=== PATIENT | female | born 1970 | race Caucasian/White ===

== ENCOUNTER 2018-02-05 13:37 | Emergency (ER) | payer OTHER ==
[~2018-02-05] VITALS: Ht 165.1 cm; Wt 99.8 kg
[~2018-02-05 13:37] MED LIST: ACET500; ALBU90OI INH; ALBU90OI6 INH; ALBU90OI61 INH; AMOX500 PO; BCP'S; BENTYL10 MG; BENTYL10 MG PO; CHOL10002; COLE1; CYCL10 PO; ESCI20; ESOM20; FAMO20 PO; FLUT220OIA INH; HYDACE10B; HYDACE5 PO; HYDMOR2 PO; HYDR1TAB94 PO; IBUP200; INDO50; INDO50 PO; METCAR500 PO; METF500; METF500 PO; METO10; MONT10T; NAPR500 PO; NYQUIL PO; Naprosyn500 MG PO; Norco 5-325 Ta1 EACH PO; OLME20; OXYCODONE 5 MG; PANT20 PO; PANT40 PO; Prednisone10 M1 PO; Prednisone20 MG PO; RANI150; RXHYDMOR2 PO; Robaxin500 MG PO; SERT100 PO; SUMA25; SUMA25 PO; TOPI100 PO; Treximet 85-501 EACH; ZOLM5
[2018-02-05] MEDS ORDERED: BENZ100A PO (14:21)
[2018-02-05] MEDS ORDERED: AZIT250 PO (14:21)
[2018-02-05] MEDS ORDERED: (None)20 M1 PO (14:21)
[2018-05-03] MEDS ORDERED: Flagyl500 MG PO (17:43)
[2018-05-03] MEDS ORDERED: Augmentin 875-1 EACH PO (17:43)
[2018-06-19] MEDS ORDERED: HYDR1TAB94 PO (00:25)
[2018-07-26] MEDS ORDERED: CLON.1 PO (13:56)
[2018-07-26] MEDS ORDERED: OLAN2.5 PO (13:57)
[2018-07-26] MEDS ORDERED: Zofran4 MG PO (15:37)
[2018-09-07] MEDS ORDERED: ESTR2 PO (20:39)
[2018-09-07] MEDS ORDERED: Norco 5-325 Ta1 EACH PO (22:25)
[2018-09-07] MEDS ORDERED: Zantac150 MG PO (22:25)
[2018-09-07] MEDS ORDERED: Carafate1 GM/10 ML PO (22:25)
[2018-10-14] MEDS ORDERED: CIME400 (05:07)
[2018-10-14] MEDS ORDERED: NORT25 (05:07)
[2018-10-14] MEDS ORDERED: ABAT250V (05:07)
[2018-10-14] MEDS ORDERED: MONT10T PO (05:08)
[2018-10-15] MEDS ORDERED: METO10 PO (20:28)
[2018-10-15] MEDS ORDERED: Esgic Tablet1 EACH PO (20:28)
== END 2018-02-05 14:33 | disposition home or self-care (01) ==
LOC: ER 13:37
DX: J45.901 Unspecified asthma with (acute) exacerbation (principal); F31.9 Bipolar disorder, unspecified; E11.9 Type 2 diabetes mellitus without complications; M10.9 Gout, unspecified; G43.909 Migraine, unspecified, not intractable, without status migrainosus; Z88.1 Allergy status to other antibiotic agents; Z88.5 Allergy status to narcotic agent; Z88.8 Allergy status to other drugs, medicaments and biological substances; Z79.84 Long term (current) use of oral hypoglycemic drugs; Z79.899 Other long term (current) drug therapy; Z98.890 Other specified postprocedural states; Z90.710 Acquired absence of both cervix and uterus
CPT/HCPCS: 71046; 94640; 99284

== ENCOUNTER → 2018-04-18 | Outpatient (CLI) | payer OTHER ==
[~2018-04-18] MED LIST changes: +(None)20 M1 PO; +AZIT250 PO; +BENZ100A PO
[2018-04-18 16:58] LABS: BASOPHILS ABSOLUTE AUTO 0.04 K/mm3 (0.00-0.23); BASOPHILS PERCENT AUTO 1 % (0-2); EOSINOPHILS PERCENT AUTO 1 % (0-6); Hematocrit 36.3 % (33.0-51.0); Hemoglobin 12.6 g/dL (11.5-16.0); IMMATURE GRAN ABSOLUTE AUTO 0.04 K/mm3 (0.00-0.10); IMMATURE GRAN PERCENT AUTO 1 % (0-1); LYMPHOCYTES ABSOLUTE AUTO 3.51 K/mm3 (0.84-5.20); LYMPHOCYTES PERCENT AUTO 43 % (21-46); MONOCYTES ABSOLUTE AUTO 0.43 K/mm3 (0.16-1.47); MONOCYTES PERCENT AUTO 5 % (4-13); Mean Corpuscular HGB Conc 34.7 g/dL (31.5-36.5); Mean Corpuscular Volume 89 fL (80-100); Mean Platelet Volume 9.9 fL (9.1-12.4); NEUTROPHILS ABSOLUTE AUTO 4.08 K/mm3 (1.96-9.15); NEUTROPHILS PERCENT AUTO 50 % (41-73); Platelet Count 271 K/mm3 (150-400); RDW Coefficient Variation 12.7 % (11.7-14.2); RDW Standard Deviation 41.4 fL (35.1-46.3); Red Blood Cell Count 4.06 M/mm3 (3.80-5.20)
[2018-04-18 17:10] LABS: Anion Gap 13 mmol/L (6-16); Blood Urea Nitrogen 13 mg/dL (8-24); Bun/Creatinine Ratio 15.7 (12.0-20.0); CO2, Blood 22 mmol/L (21-32); Chloride, Blood 106 mmol/L (98-108); Creatinine, Blood 0.83 mg/dL (0.40-1.00); Glomerular Filtration Rate >60 (60-); Glucose, Blood 104 mg/dL (70-99); Potassium, Blood 3.7 mmol/L (3.5-5.5); Sodium, Blood 141 mmol/L (136-145)
[2018-04-18 17:11] LABS: Troponin I <0.017 ng/mL (0.000-0.040)
== END | disposition home or self-care (01) ==
LOC: LAB EV 16:50 → LAB SHORT 16:50
PROVIDERS: General Practice
DX: R07.9 Chest pain, unspecified (principal)
CPT/HCPCS: 80048; 84484; 85025

== ENCOUNTER 2018-05-26 19:31 | Emergency (ER) | payer OTHER ==
[~2018-05-26] VITALS: Ht 165.1 cm; Wt 107.5 kg
[~2018-05-26 19:31] MED LIST changes: +Augmentin 875-1 EACH PO; +Flagyl500 MG PO
[2018-05-26 20:25] LABS: BASOPHILS ABSOLUTE AUTO 0.03 K/mm3 (0.00-0.23); BASOPHILS PERCENT AUTO 0 % (0-2); EOSINOPHILS PERCENT AUTO 1 % (0-6); Hematocrit 37.5 % (33.0-51.0); Hemoglobin 12.6 g/dL (11.5-16.0); IMMATURE GRAN ABSOLUTE AUTO 0.05 K/mm3 (0.00-0.10); IMMATURE GRAN PERCENT AUTO 1 % (0-1); LYMPHOCYTES ABSOLUTE AUTO 3.22 K/mm3 (0.84-5.20); LYMPHOCYTES PERCENT AUTO 38 % (21-46); MONOCYTES ABSOLUTE AUTO 0.43 K/mm3 (0.16-1.47); MONOCYTES PERCENT AUTO 5 % (4-13); Mean Corpuscular HGB 30.7 pg (26.0-34.0); Mean Corpuscular HGB Conc 33.6 g/dL (31.5-36.5); Mean Corpuscular Volume 91 fL (80-100); Mean Platelet Volume 9.8 fL (9.1-12.4); NEUTROPHILS ABSOLUTE AUTO 4.63 K/mm3 (1.96-9.15); NEUTROPHILS PERCENT AUTO 55 % (41-73); Platelet Count 252 K/mm3 (150-400); RDW Coefficient Variation 12.4 % (11.7-14.2); RDW Standard Deviation 41.2 fL (35.1-46.3); Red Blood Cell Count 4.11 M/mm3 (3.80-5.20); White Blood Cell Count 8.46 K/mm3 (4.00-11.30)
[2018-05-26 20:44] LABS: Alanine Aminotransfer (ALT/SGP 24 U/L (12-78); Albumin, Blood 3.4 g/dL (3.4-5.0); Albumin/Globulin Ratio 0.9 (0.8-1.8); Alk Phos 47 U/L (50-136); Anion Gap 10 mmol/L (6-16); Aspartate Aminotrans (AST/SGOT 22 U/L (12-37); Bilirubin, Total 0.2 mg/dL (0.1-1.0); Blood Urea Nitrogen 13 mg/dL (8-24); Bun/Creatinine Ratio 21.3 (12.0-20.0); CO2, Blood 22 mmol/L (21-32); Calcium, Blood 8.6 mg/dL (8.5-10.1); Chloride, Blood 109 mmol/L (98-108); Creatinine, Blood 0.61 mg/dL (0.40-1.00); Globulin, Blood 3.6 g/dL (2.2-4.0); Glomerular Filtration Rate >60 (60-); Glucose, Blood 152 mg/dL (70-99); Potassium, Blood 3.5 mmol/L (3.5-5.5); Sodium, Blood 141 mmol/L (136-145)
[2018-05-27 00:42] LABS: Source, Urine Voided
[2018-05-27 00:57] LABS: Appearance, Urine Clear (Clear); Bilirubin, Urine Neg (Neg); Blood, Urine Neg (Neg); Color, Urine Yellow (P-Yellow); Glucose Qualitative, Urine Neg (Neg); Ketones, Urine Neg (Neg); Leukocyte Esterase, Urine Neg (Neg); Nitrite, Urine Neg (Neg); Protein, Urine Neg (Neg); Urobilinogen, Urine NORM (Normal)
[2018-05-27] MEDS ORDERED: CEFP200 PO (05:13)
[2018-05-27] MEDS ORDERED: Flagyl500 MG PO (05:13)
== END 2018-05-27 05:35 | disposition home or self-care (01) ==
LOC: ER 19:31
PROVIDERS: Emergency Medicine
DX: K52.9 Noninfective gastroenteritis and colitis, unspecified (principal); R11.0 Nausea; Z88.8 Allergy status to other drugs, medicaments and biological substances; Z88.1 Allergy status to other antibiotic agents; Z88.5 Allergy status to narcotic agent; Z79.899 Other long term (current) drug therapy; Z79.84 Long term (current) use of oral hypoglycemic drugs; Z79.52 Long term (current) use of systemic steroids; F31.9 Bipolar disorder, unspecified; E11.9 Type 2 diabetes mellitus without complications; J45.909 Unspecified asthma, uncomplicated
CPT/HCPCS: 36415; 74177; 80053; 81003; 83690; 85025; 96365; 96366; 96375; 99284-25; J2405; J2543; J2550; J3010; J7030; Q9967

== ENCOUNTER → 2018-07-06 | Outpatient (CLI) | payer OTHER ==
[~2018-07-06] MED LIST changes: +CEFP200 PO
[2018-07-06 15:03] LABS: Adenovirus F 40/41 Not Detected (NOT DETECT); Astrovirus Not Detected (NOT DETECT); Campylobacter Sp Not Detected (NOT DETECT); Cryptosporidium Not Detected (NOT DETECT); Cyclospora Cayetanensis Not Detected (NOT DETECT); E. Coli O157 Not Detected (NOT DETECT); Entamoeba Histolytica Not Detected (NOT DETECT); Enteroaggregative E. coli-EAEC Not Detected (NOT DETECT); Enteropathogenic E. coli-EPEC Not Detected (NOT DETECT); Enterotoxigenic E. coli-ETEC Not Detected (NOT DETECT); Giardia Lamblia Not Detected (NOT DETECT); Norovirus GI/GII Not Detected (NOT DETECT); Plesiomonas Shigelloides Not Detected (NOT DETECT); Rotavirus A Not Detected (NOT DETECT); Salmonella Sp Not Detected (NOT DETECT); Sapovirus Not Detected (NOT DETECT); Shiga Toxin-prod E. coli-STEC Not Detected (NOT DETECT); Shigella/Enteroin E. coli-EIEC Not Detected (NOT DETECT); Vibrio Cholerae Not Detected (NOT DETECT); Vibrio Sp Not Detected (NOT DETECT); Yersinia Enterocolitica Not Detected (NOT DETECT)
== END ==
LOC: EDSTATUS 06-30 13:00 → LAB FUT 06-30 13:00 → LAB SHORT 13:34 → LAB 13:34
PROVIDERS: Student in an Organized Health Care Education/Training Program
DX: R12 Heartburn (principal); R19.7 Diarrhea, unspecified; R14.0 Abdominal distension (gaseous)
CPT/HCPCS: 87177; 87209; 87507

== ENCOUNTER 2018-07-08 19:23 | Emergency (ER) | payer OTHER ==
[~2018-07-08] VITALS: Ht 165.1 cm; Wt 104.8 kg
[2018-07-08 20:03] LABS: BASOPHILS ABSOLUTE AUTO 0.04 K/mm3 (0.00-0.23); BASOPHILS PERCENT AUTO 0 % (0-2); EOSINOPHILS ABSOLUTE AUTO 0.12 K/mm3 (0.00-0.68); EOSINOPHILS PERCENT AUTO 1 % (0-6); Hematocrit 37.3 % (33.0-51.0); Hemoglobin 12.6 g/dL (11.5-16.0); IMMATURE GRAN ABSOLUTE AUTO 0.06 K/mm3 (0.00-0.10); IMMATURE GRAN PERCENT AUTO 1 % (0-1); LYMPHOCYTES ABSOLUTE AUTO 3.47 K/mm3 (0.84-5.20); LYMPHOCYTES PERCENT AUTO 36 % (21-46); MONOCYTES ABSOLUTE AUTO 0.64 K/mm3 (0.16-1.47); MONOCYTES PERCENT AUTO 7 % (4-13); Mean Corpuscular HGB 30.7 pg (26.0-34.0); Mean Corpuscular HGB Conc 33.8 g/dL (31.5-36.5); Mean Corpuscular Volume 91 fL (80-100); Mean Platelet Volume 9.9 fL (9.1-12.4); NEUTROPHILS ABSOLUTE AUTO 5.24 K/mm3 (1.96-9.15); NEUTROPHILS PERCENT AUTO 55 % (41-73); Platelet Count 236 K/mm3 (150-400); RDW Coefficient Variation 12.7 % (11.7-14.2); RDW Standard Deviation 41.6 fL (35.1-46.3); White Blood Cell Count 9.57 K/mm3 (4.00-11.30)
[2018-07-08 20:27] LABS: Alanine Aminotransfer (ALT/SGP 28 U/L (12-78); Albumin, Blood 3.4 g/dL (3.4-5.0); Albumin/Globulin Ratio 0.9 (0.8-1.8); Alk Phos 45 U/L (50-136); Anion Gap 10 mmol/L (6-16); Aspartate Aminotrans (AST/SGOT 15 U/L (12-37); Bilirubin, Total <0.1 mg/dL (0.1-1.0); Blood Urea Nitrogen 13 mg/dL (8-24); Bun/Creatinine Ratio 19.1 (12.0-20.0); CO2, Blood 23 mmol/L (21-32); Chloride, Blood 106 mmol/L (98-108); Creatinine, Blood 0.68 mg/dL (0.40-1.00); Globulin, Blood 3.6 g/dL (2.2-4.0); Glomerular Filtration Rate >60 (60-); Glucose, Blood 126 mg/dL (70-99); Sodium, Blood 139 mmol/L (136-145)
[2018-07-08 21:37] LABS: Source, Urine Clean Catch
[2018-07-08 21:38] LABS: Bilirubin, Urine Neg (Neg); Blood, Urine Neg (Neg); Glucose Qualitative, Urine Neg (Neg); Ketones, Urine 1+ (Neg); Leukocyte Esterase, Urine Neg (Neg); Nitrite, Urine Neg (Neg); Protein, Urine Neg (Neg); Urobilinogen, Urine NORM (Normal)
[2018-07-08 21:50] LABS: Appearance, Urine Clear (Clear); Color, Urine Yellow (P-Yellow)
== END 2018-07-09 00:55 | disposition home or self-care (01) ==
LOC: ER 19:23
PROVIDERS: Emergency Medicine
DX: R10.10 Upper abdominal pain, unspecified (principal); Z88.1 Allergy status to other antibiotic agents; Z88.8 Allergy status to other drugs, medicaments and biological substances; Z88.5 Allergy status to narcotic agent; Z79.899 Other long term (current) drug therapy; Z79.84 Long term (current) use of oral hypoglycemic drugs; Z79.52 Long term (current) use of systemic steroids; F31.9 Bipolar disorder, unspecified; E11.9 Type 2 diabetes mellitus without complications; J44.9 Chronic obstructive pulmonary disease, unspecified; G43.909 Migraine, unspecified, not intractable, without status migrainosus
CPT/HCPCS: 36415; 74022; 80053; 81003; 83690; 85025; 93005; 93010; 96374; 99284-25; C9113

== ENCOUNTER 2018-07-13 12:50 | Day surgery (SDC) | payer OTHER ==
[~2018-07-13] VITALS: Ht 165.1 cm; Wt 109.3 kg
[2018-07-26] MEDS ORDERED: CLON.1 PO (13:56)
[2018-07-26] MEDS ORDERED: OLAN2.5 PO (13:57)
[2018-07-26] MEDS ORDERED: Zofran4 MG PO (15:37)
== END 2018-07-13 16:54 | disposition home or self-care (01) ==
LOC: ORSCSDS 12:50
PROVIDERS: Student in an Organized Health Care Education/Training Program
PROC: 0DB58ZX Excision of Esophagus, Via Natural or Artificial Opening Endoscopic, Diagnostic (ICD-10-PCS; principal; 2018-07-13 14:00)
PROC: 0DB98ZX Excision of Duodenum, Via Natural or Artificial Opening Endoscopic, Diagnostic (ICD-10-PCS; principal; 2018-07-13 14:00)
PROC: 0DB68ZX Excision of Stomach, Via Natural or Artificial Opening Endoscopic, Diagnostic (ICD-10-PCS; principal; 2018-07-13 14:00)
DX: K21.9 Gastro-esophageal reflux disease without esophagitis (principal); K31.7 Polyp of stomach and duodenum; E11.9 Type 2 diabetes mellitus without complications; K58.0 Irritable bowel syndrome with diarrhea; F41.8 Other specified anxiety disorders; G47.30 Sleep apnea, unspecified; F31.9 Bipolar disorder, unspecified; J45.909 Unspecified asthma, uncomplicated; Z68.39 Body mass index [BMI] 39.0-39.9, adult; E66.01 Morbid (severe) obesity due to excess calories; Z79.84 Long term (current) use of oral hypoglycemic drugs; Z79.899 Other long term (current) drug therapy
CPT/HCPCS: 82947; 88305; 88341; 88342; J2250; J2405; J3010

== ENCOUNTER 2018-12-07 17:36 | Emergency (ER) | payer OTHER ==
[~2018-12-07] VITALS: Ht 165.1 cm; Wt 116.6 kg
[~2018-12-07 17:36] MED LIST changes: +ABAT250V; +CIME400; +CLON.1 PO; +Carafate1 GM/10 ML PO; +ESTR2 PO; +Esgic Tablet1 EACH PO; +METO10 PO; +MONT10T PO; +NORT25; +OLAN2.5 PO; +Zantac150 MG PO; +Zofran4 MG PO
[2018-12-07 18:16] LABS: BASOPHILS ABSOLUTE AUTO 0.01 K/mm3 (0.00-0.23); BASOPHILS PERCENT AUTO 0 % (0-2); EOSINOPHILS ABSOLUTE AUTO 0.11 K/mm3 (0.00-0.68); EOSINOPHILS PERCENT AUTO 1 % (0-6); Hematocrit 36.6 % (33.0-51.0); Hemoglobin 12.1 g/dL (11.5-16.0); IMMATURE GRAN ABSOLUTE AUTO 0.14 K/mm3 (0.00-0.10); IMMATURE GRAN PERCENT AUTO 2 % (0-1); LYMPHOCYTES ABSOLUTE AUTO 2.38 K/mm3 (0.84-5.20); LYMPHOCYTES PERCENT AUTO 30 % (21-46); MONOCYTES ABSOLUTE AUTO 0.51 K/mm3 (0.16-1.47); MONOCYTES PERCENT AUTO 6 % (4-13); Mean Corpuscular HGB 30.7 pg (26.0-34.0); Mean Corpuscular HGB Conc 33.1 g/dL (31.5-36.5); Mean Corpuscular Volume 93 fL (80-100); Mean Platelet Volume 10.1 fL (9.1-12.4); NEUTROPHILS ABSOLUTE AUTO 4.84 K/mm3 (1.96-9.15); NEUTROPHILS PERCENT AUTO 61 % (41-73); Platelet Count 204 K/mm3 (150-400); RDW Coefficient Variation 12.8 % (11.7-14.2); RDW Standard Deviation 43.6 fL (35.1-46.3); Red Blood Cell Count 3.94 M/mm3 (3.80-5.20); White Blood Cell Count 7.99 K/mm3 (4.00-11.30)
[2018-12-07 18:35] LABS: Troponin I <0.015 ng/mL (0.000-0.040)
[2018-12-07 18:36] LABS: Alanine Aminotransfer (ALT/SGP 38 U/L (12-78); Albumin, Blood 3.1 g/dL (3.4-5.0); Albumin/Globulin Ratio 0.8 (0.8-1.8); Alk Phos 54 U/L (50-136); Anion Gap 10 mmol/L (6-16); Aspartate Aminotrans (AST/SGOT 41 U/L (12-37); Bilirubin, Total 0.2 mg/dL (0.1-1.0); Blood Urea Nitrogen 13 mg/dL (8-24); Bun/Creatinine Ratio 18.3 (12.0-20.0); CO2, Blood 26 mmol/L (21-32); Calcium, Blood 8.6 mg/dL (8.5-10.1); Chloride, Blood 100 mmol/L (98-108); Creatinine, Blood 0.71 mg/dL (0.40-1.00); Globulin, Blood 3.7 g/dL (2.2-4.0); Glomerular Filtration Rate >60 (60-); Glucose, Blood 237 mg/dL (70-99); Sodium, Blood 136 mmol/L (136-145); Total Protein, Blood 6.8 g/dL (6.4-8.2)
[2018-12-24] MEDS ORDERED: Indomethacin50 MG (09:12)
[2019-01-04] MEDS ORDERED: LISI20 (08:49)
[2019-01-04] MEDS ORDERED: BASAGLAR K100 UNIT/1 (08:50)
== END 2018-12-08 01:24 | disposition home or self-care (01) ==
LOC: ER 17:36
PROVIDERS: Physician Assistant
DX: R07.9 Chest pain, unspecified (principal); E11.9 Type 2 diabetes mellitus without complications; J44.9 Chronic obstructive pulmonary disease, unspecified; F31.9 Bipolar disorder, unspecified; Z79.84 Long term (current) use of oral hypoglycemic drugs; Z79.899 Other long term (current) drug therapy
CPT/HCPCS: 36415; 71046; 71260; 80053; 84484; 85025; 85379; 93005; 93010; 96374; 99285-25; J1885; Q9967

== ENCOUNTER 2018-12-10 09:23 | Emergency (ER) | payer OTHER ==
[~2018-12-10] VITALS: Ht 165.1 cm; Wt 71.2 kg
[2018-12-10 10:23] LABS: Source, Urine Clean Catch
[2018-12-10 10:28] LABS: BASOPHILS ABSOLUTE AUTO 0.06 K/mm3 (0.00-0.23); BASOPHILS PERCENT AUTO 1 % (0-2); EOSINOPHILS ABSOLUTE AUTO 0.13 K/mm3 (0.00-0.68); EOSINOPHILS PERCENT AUTO 1 % (0-6); Hemoglobin 12.3 g/dL (11.5-16.0); IMMATURE GRAN ABSOLUTE AUTO 0.11 K/mm3 (0.00-0.10); IMMATURE GRAN PERCENT AUTO 1 % (0-1); LYMPHOCYTES ABSOLUTE AUTO 2.69 K/mm3 (0.84-5.20); LYMPHOCYTES PERCENT AUTO 26 % (21-46); MONOCYTES ABSOLUTE AUTO 0.75 K/mm3 (0.16-1.47); MONOCYTES PERCENT AUTO 7 % (4-13); Mean Corpuscular HGB 29.9 pg (26.0-34.0); Mean Corpuscular HGB Conc 32.4 g/dL (31.5-36.5); Mean Corpuscular Volume 92 fL (80-100); Mean Platelet Volume 9.9 fL (9.1-12.4); NEUTROPHILS ABSOLUTE AUTO 6.56 K/mm3 (1.96-9.15); NEUTROPHILS PERCENT AUTO 64 % (41-73); Platelet Count 212 K/mm3 (150-400); RDW Coefficient Variation 13.1 % (11.7-14.2); RDW Standard Deviation 43.7 fL (35.1-46.3); Red Blood Cell Count 4.12 M/mm3 (3.80-5.20)
[2018-12-10 10:31] LABS: Appearance, Urine Clear (Clear); Bilirubin, Urine Neg (Neg); Blood, Urine 1+ (Neg); Color, Urine Yellow (P-Yellow); Glucose Qualitative, Urine 4+ (Neg); Ketones, Urine 1+ (Neg); Leukocyte Esterase, Urine Neg (Neg); Nitrite, Urine Neg (Neg); Protein, Urine 1+ (Neg); Urobilinogen, Urine NORM (Normal)
[2018-12-10 10:47] LABS: Alanine Aminotransfer (ALT/SGP 32 U/L (12-78); Albumin, Blood 3.2 g/dL (3.4-5.0); Albumin/Globulin Ratio 0.8 (0.8-1.8); Alk Phos 62 U/L (50-136); Anion Gap 9 mmol/L (6-16); Aspartate Aminotrans (AST/SGOT 40 U/L (12-37); Bilirubin, Total 0.3 mg/dL (0.1-1.0); Blood Urea Nitrogen 13 mg/dL (8-24); Bun/Creatinine Ratio 22.4 (12.0-20.0); CO2, Blood 27 mmol/L (21-32); Calcium, Blood 8.6 mg/dL (8.5-10.1); Chloride, Blood 102 mmol/L (98-108); Creatinine, Blood 0.58 mg/dL (0.40-1.00); Globulin, Blood 3.8 g/dL (2.2-4.0); Glomerular Filtration Rate >60 (60-); Glucose, Blood 293 mg/dL (70-99); Potassium, Blood 4.2 mmol/L (3.5-5.5); Sodium, Blood 138 mmol/L (136-145)
[2018-12-10 11:00] LABS: Bacteria Not Seen /hpf; Red Blood Cells, Urine Not Seen /hpf (0-2); Squamous Epithelial Cells Few /hpf (Few); White Blood Cells, Urine Not Seen /hpf (0-5)
[2018-12-10] MEDS ORDERED: METCAR500 PO (11:55)
[2018-12-10] MEDS ORDERED: Prinivil10 MG PO (11:55)
[2018-12-24] MEDS ORDERED: Indomethacin50 MG (09:12)
[2019-01-04] MEDS ORDERED: LISI20 (08:49)
[2019-01-04] MEDS ORDERED: BASAGLAR K100 UNIT/1 (08:50)
== END 2018-12-10 12:11 | disposition home or self-care (01) ==
LOC: ER 09:23
PROVIDERS: Emergency Medicine
DX: R07.9 Chest pain, unspecified (principal); R10.9 Unspecified abdominal pain; I10 Essential (primary) hypertension; F31.9 Bipolar disorder, unspecified; E11.9 Type 2 diabetes mellitus without complications; J44.9 Chronic obstructive pulmonary disease, unspecified; Z88.1 Allergy status to other antibiotic agents; Z88.8 Allergy status to other drugs, medicaments and biological substances; Z79.899 Other long term (current) drug therapy; Z79.84 Long term (current) use of oral hypoglycemic drugs
CPT/HCPCS: 36415; 80053; 81001; 83690; 84484; 85025; 93005; 93010; 96361; 96374; 96375; 99283-25; J1885; J2405; J7120

== ENCOUNTER 2019-04-26 22:11 | Emergency (ER) | payer OTHER ==
[~2019-04-26] VITALS: Ht 165.1 cm; Wt 118.8 kg
[~2019-04-26 22:11] MED LIST changes: +BASAGLAR K100 UNIT/1; +ESCI5 PO; +Indomethacin50 MG; +LIDO700A20 TOP; +LISI20; +Prinivil10 MG PO
[2019-04-26 22:42] LABS: BASOPHILS ABSOLUTE AUTO 0.03 K/mm3 (0.00-0.23); BASOPHILS PERCENT AUTO 0 % (0-2); EOSINOPHILS ABSOLUTE AUTO 0.14 K/mm3 (0.00-0.68); EOSINOPHILS PERCENT AUTO 2 % (0-6); Hematocrit 37.1 % (33.0-51.0); Hemoglobin 12.1 g/dL (11.5-16.0); IMMATURE GRAN ABSOLUTE AUTO 0.06 K/mm3 (0.00-0.10); IMMATURE GRAN PERCENT AUTO 1 % (0-1); LYMPHOCYTES ABSOLUTE AUTO 3.01 K/mm3 (0.84-5.20); LYMPHOCYTES PERCENT AUTO 34 % (21-46); MONOCYTES ABSOLUTE AUTO 0.51 K/mm3 (0.16-1.47); MONOCYTES PERCENT AUTO 6 % (4-13); Mean Corpuscular HGB 30.8 pg (26.0-34.0); Mean Corpuscular HGB Conc 32.6 g/dL (31.5-36.5); Mean Corpuscular Volume 94 fL (80-100); NEUTROPHILS ABSOLUTE AUTO 5.04 K/mm3 (1.96-9.15); NEUTROPHILS PERCENT AUTO 57 % (41-73); Platelet Count 254 K/mm3 (150-400); RDW Coefficient Variation 13.1 % (11.7-14.2); RDW Standard Deviation 44.9 fL (35.1-46.3); Red Blood Cell Count 3.93 M/mm3 (3.80-5.20); White Blood Cell Count 8.79 K/mm3 (4.00-11.30)
[2019-04-26 23:03] LABS: Alanine Aminotransfer (ALT/SGP 40 U/L (12-78); Albumin, Blood 3.2 g/dL (3.4-5.0); Albumin/Globulin Ratio 0.8 (0.8-1.8); Alk Phos 64 U/L (50-136); Anion Gap 11 mmol/L (6-16); Aspartate Aminotrans (AST/SGOT 58 U/L (12-37); Bilirubin, Total 0.2 mg/dL (0.1-1.0); Blood Urea Nitrogen 15 mg/dL (8-24); Bun/Creatinine Ratio 26.9 (12.0-20.0); CO2, Blood 23 mmol/L (21-32); Calcium, Blood 9.1 mg/dL (8.5-10.1); Chloride, Blood 102 mmol/L (98-108); Creatinine, Blood 0.56 mg/dL (0.40-1.00); Globulin, Blood 3.8 g/dL (2.2-4.0); Glomerular Filtration Rate >60 (60-); Glucose, Blood 296 mg/dL (70-99); Potassium, Blood 4.6 mmol/L (3.5-5.5); Sodium, Blood 136 mmol/L (136-145); Troponin I <0.015 ng/mL (0.000-0.040)
[2019-04-27] MEDS ORDERED: Metformin HCl1000 MG PO (00:17)
[2019-04-27] MEDS ORDERED: MONT10T PO (00:17)
[2019-04-27] MEDS ORDERED: [UNRECOGNIZED DRUG - OTHER] PO (00:17)
[2019-04-27] MEDS ORDERED: Nortriptyline H25 MG PO (00:18)
[2019-04-27] MEDS ORDERED: Estradiol0.5 MG PO (00:18)
[2019-04-27] MEDS ORDERED: LISI20 PO (00:19)
[2019-04-27] MEDS ORDERED: MELO7.5 PO (00:19)
[2019-04-27] MEDS ORDERED: VITAMIN B12 PO (00:19)
[2019-04-27] MEDS ORDERED: OLAN5 PO (00:19)
[2019-04-27] MEDS ORDERED: Flexeril5 MG PO (00:20)
[2019-04-27] MEDS ORDERED: GABA300 PO (00:20)
[2019-04-27] MEDS ORDERED: BASAGLAR K100 UNIT/1 SC (00:20)
[2019-04-27] MEDS ORDERED: ASPI81CH PO (00:21)
[2019-04-27] MEDS ORDERED: ONDA4ODT MM (00:57)
[2019-06-24] MEDS ORDERED: Dicyclomine HCl10 MG PO (12:11)
[2019-06-24] MEDS ORDERED: PROAIR RESPICL90 MCG INH (12:12)
[2019-06-24] MEDS ORDERED: Indomethacin50 MG PO (12:12)
[2019-06-24] MEDS ORDERED: Flovent 220 Ora12 GM INH (12:13)
[2019-06-24] MEDS ORDERED: Glucophage1000 MG PO (12:13)
[2019-06-24] MEDS ORDERED: VITAMIN D32000 UNI1 PO (12:13)
[2019-06-24] MEDS ORDERED: MONT10T PO (12:13)
[2019-06-24] MEDS ORDERED: Estradiol0.5 MG PO (12:14)
[2019-06-24] MEDS ORDERED: CLON.1 PO (12:14)
[2019-06-24] MEDS ORDERED: ESCI10 PO (12:14)
[2019-06-24] MEDS ORDERED: OLAN5 PO (12:15)
[2019-06-24] MEDS ORDERED: Zofran8 MG PO (12:15)
[2019-06-24] MEDS ORDERED: NORT25 PO (12:15)
[2019-06-24] MEDS ORDERED: PANT40 PO (12:15)
[2019-06-24] MEDS ORDERED: LISI20 PO (12:16)
[2019-06-24] MEDS ORDERED: Esgic Tablet1 EACH PO (12:16)
== END 2019-04-27 01:11 | disposition home or self-care (01) ==
LOC: ER 22:11
PROVIDERS: Physician Assistant
DX: R00.2 Palpitations (principal); R00.0 Tachycardia, unspecified; R11.0 Nausea; E11.65 Type 2 diabetes mellitus with hyperglycemia; M54.5 Low back pain; G89.29 Other chronic pain; J44.9 Chronic obstructive pulmonary disease, unspecified
CPT/HCPCS: 36415; 71046; 80053; 84484; 85025; 93005; 93010; 96374; 99284-25; J2405

== ENCOUNTER 2019-06-25 17:57 | Emergency (ER) | payer OTHER ==
[~2019-06-25] VITALS: Ht 165.1 cm; Wt 110.7 kg
[~2019-06-25 17:57] MED LIST changes: +ASPI81CH PO; +BASAGLAR K100 UNIT/1 SC; +Dicyclomine HCl10 MG PO; +ESCI10 PO; +Estradiol0.5 MG PO; +Flexeril5 MG PO; +Flovent 220 Ora12 GM INH; +GABA300 PO; +Glucophage1000 MG PO; +Indomethacin50 MG PO; +LISI20 PO; +MELO7.5 PO; +Metformin HCl1000 MG PO; +NORT25 PO; +Nortriptyline H25 MG PO; +OLAN5 PO; +ONDA4ODT MM; +PROAIR RESPICL90 MCG INH; +VITAMIN B12 PO; +VITAMIN D32000 UNI1 PO; +Zofran8 MG PO; +[UNRECOGNIZED DRUG - OTHER] PO
[2019-06-25 18:34] LABS: BASOPHILS ABSOLUTE AUTO 0.03 K/mm3 (0.00-0.23); BASOPHILS PERCENT AUTO 0 % (0-2); EOSINOPHILS ABSOLUTE AUTO 0.07 K/mm3 (0.00-0.68); EOSINOPHILS PERCENT AUTO 1 % (0-6); Hematocrit 38.2 % (33.0-51.0); Hemoglobin 12.7 g/dL (11.5-16.0); IMMATURE GRAN ABSOLUTE AUTO 0.04 K/mm3 (0.00-0.10); IMMATURE GRAN PERCENT AUTO 1 % (0-1); LYMPHOCYTES ABSOLUTE AUTO 2.85 K/mm3 (0.84-5.20); LYMPHOCYTES PERCENT AUTO 38 % (21-46); MONOCYTES ABSOLUTE AUTO 0.45 K/mm3 (0.16-1.47); MONOCYTES PERCENT AUTO 6 % (4-13); Mean Corpuscular HGB Conc 33.2 g/dL (31.5-36.5); Mean Corpuscular Volume 93 fL (80-100); Mean Platelet Volume 10.3 fL (9.1-12.4); NEUTROPHILS PERCENT AUTO 54 % (41-73); Platelet Count 203 K/mm3 (150-400); RDW Coefficient Variation 12.9 % (11.7-14.2); White Blood Cell Count 7.44 K/mm3 (4.00-11.30)
[2019-06-25 18:55] LABS: Alanine Aminotransfer (ALT/SGP 54 U/L (12-78); Albumin, Blood 3.2 g/dL (3.4-5.0); Albumin/Globulin Ratio 0.8 (0.8-1.8); Alk Phos 58 U/L (50-136); Anion Gap 10 mmol/L (6-16); Aspartate Aminotrans (AST/SGOT 58 U/L (12-37); Bilirubin, Total 0.2 mg/dL (0.1-1.0); Blood Urea Nitrogen 14 mg/dL (8-24); Bun/Creatinine Ratio 27.3 (12.0-20.0); CO2, Blood 22 mmol/L (21-32); Calcium, Blood 9.2 mg/dL (8.5-10.1); Chloride, Blood 101 mmol/L (98-108); Creatinine, Blood 0.51 mg/dL (0.40-1.00); Globulin, Blood 3.9 g/dL (2.2-4.0); Glomerular Filtration Rate >60 (60-); Glucose, Blood 363 mg/dL (70-99); Potassium, Blood 4.4 mmol/L (3.5-5.5); Sodium, Blood 133 mmol/L (136-145); Total Protein, Blood 7.1 g/dL (6.4-8.2)
[2019-06-25 19:55] LABS: Source, Urine Clean Catch
[2019-06-25 20:00] LABS: Bilirubin, Urine Neg (Neg); Blood, Urine Neg (Neg); Glucose Qualitative, Urine 4+ (Neg); Ketones, Urine 2+ (Neg); Leukocyte Esterase, Urine Neg (Neg); Nitrite, Urine Neg (Neg); Protein, Urine Neg (Neg); Urobilinogen, Urine NORM (Normal)
[2019-06-25 20:04] LABS: Appearance, Urine Clear (Clear); Color, Urine Yellow (P-Yellow)
== END 2019-06-25 20:55 | disposition home or self-care (01) ==
LOC: ER 17:57
PROVIDERS: Emergency Medicine; Physician Assistant
DX: R10.11 Right upper quadrant pain (principal); R10.12 Left upper quadrant pain; E11.65 Type 2 diabetes mellitus with hyperglycemia; E11.43 Type 2 diabetes mellitus with diabetic autonomic (poly)neuropathy; K31.84 Gastroparesis; F31.9 Bipolar disorder, unspecified; J44.9 Chronic obstructive pulmonary disease, unspecified; G47.33 Obstructive sleep apnea (adult) (pediatric); K21.9 Gastro-esophageal reflux disease without esophagitis; G43.909 Migraine, unspecified, not intractable, without status migrainosus; Z79.899 Other long term (current) drug therapy
CPT/HCPCS: 36415; 74177; 80053; 81003; 83690; 85025; 93005; 93010; 96361; 96374-59; 99284-25; J2270; J7030; Q9967

== ENCOUNTER 2019-07-01 12:15 | Day surgery (SDC) | payer OTHER ==
[~2019-07-01] VITALS: Ht 165.1 cm; Wt 110.4 kg
--- NOTE | 2019-07-01 13:28 | NUR ---
07/01/19 1324 Waqas Alston CHECKED ON PT. UPDATED PT & SPOUSE ON TIME FRAME. BOTH UNDERSTANDING. RESTING COMFORTABLY IN PRE OP. CALL LIGHT WITHIN REACH. WILL CONTINUE TO MONITOR. VSS.
--- NOTE | 2019-07-01 14:20 | NUR ---
07/01/19 9918 Waqas Alston INJECTED MYLICON INTO BX PORT PER DR FRANKLIN.
== END 2019-07-01 14:57 | disposition home or self-care (01) ==
LOC: ORSCSDS 12:15
PROVIDERS: Student in an Organized Health Care Education/Training Program
PROC: 0DB58ZX Excision of Esophagus, Via Natural or Artificial Opening Endoscopic, Diagnostic (ICD-10-PCS; principal; 2019-07-01 13:30)
PROC: 0DB68ZX Excision of Stomach, Via Natural or Artificial Opening Endoscopic, Diagnostic (ICD-10-PCS; principal; 2019-07-01 13:30)
DX: K31.7 Polyp of stomach and duodenum (principal); K29.70 Gastritis, unspecified, without bleeding; K31.84 Gastroparesis; R14.0 Abdominal distension (gaseous); I10 Essential (primary) hypertension; G47.33 Obstructive sleep apnea (adult) (pediatric); E66.01 Morbid (severe) obesity due to excess calories; Z68.41 Body mass index [BMI] 40.0-44.9, adult; E11.9 Type 2 diabetes mellitus without complications; Z79.4 Long term (current) use of insulin; Z79.899 Other long term (current) drug therapy
CPT/HCPCS: 82947; 88305; 88341; 88342; J2704

== ENCOUNTER 2019-07-04 18:32 | Emergency (ER) | payer OTHER ==
[~2019-07-04] VITALS: Ht 165.1 cm; Wt 110.2 kg
[2019-07-04 18:56] LABS: BASOPHILS ABSOLUTE AUTO 0.04 K/mm3 (0.00-0.23); BASOPHILS PERCENT AUTO 1 % (0-2); EOSINOPHILS ABSOLUTE AUTO 0.08 K/mm3 (0.00-0.68); EOSINOPHILS PERCENT AUTO 1 % (0-6); IMMATURE GRAN ABSOLUTE AUTO 0.05 K/mm3 (0.00-0.10); IMMATURE GRAN PERCENT AUTO 1 % (0-1); LYMPHOCYTES ABSOLUTE AUTO 3.49 K/mm3 (0.84-5.20); LYMPHOCYTES PERCENT AUTO 42 % (21-46); MONOCYTES ABSOLUTE AUTO 0.51 K/mm3 (0.16-1.47); MONOCYTES PERCENT AUTO 6 % (4-13); Mean Corpuscular HGB 30.8 pg (26.0-34.0); Mean Corpuscular HGB Conc 33.3 g/dL (31.5-36.5); Mean Corpuscular Volume 92 fL (80-100); Mean Platelet Volume 10.2 fL (9.1-12.4); NEUTROPHILS ABSOLUTE AUTO 4.11 K/mm3 (1.96-9.15); NEUTROPHILS PERCENT AUTO 50 % (41-73); Platelet Count 231 K/mm3 (150-400); RDW Coefficient Variation 13.1 % (11.7-14.2); Red Blood Cell Count 4.22 M/mm3 (3.80-5.20); White Blood Cell Count 8.28 K/mm3 (4.00-11.30)
[2019-07-04 19:10] LABS: Alanine Aminotransfer (ALT/SGP 47 U/L (12-78); Albumin, Blood 3.7 g/dL (3.4-5.0); Alk Phos 58 U/L (50-136); Anion Gap 10 mmol/L (6-16); Aspartate Aminotrans (AST/SGOT 46 U/L (12-37); Bilirubin, Total 0.3 mg/dL (0.1-1.0); Blood Urea Nitrogen 14 mg/dL (8-24); Bun/Creatinine Ratio 31.7 (12.0-20.0); CO2, Blood 23 mmol/L (21-32); Calcium, Blood 9.6 mg/dL (8.5-10.1); Chloride, Blood 99 mmol/L (98-108); Creatinine, Blood 0.44 mg/dL (0.40-1.00); Globulin, Blood 3.8 g/dL (2.2-4.0); Glomerular Filtration Rate >60 (60-); Glucose, Blood 285 mg/dL (70-99); Potassium, Blood 4.2 mmol/L (3.5-5.5); Sodium, Blood 132 mmol/L (136-145); Total Protein, Blood 7.5 g/dL (6.4-8.2)
[2019-07-04 22:06] LABS: Source, Urine Clean Catch
[2019-07-04 22:15] LABS: Bilirubin, Urine Neg (Neg); Blood, Urine Neg (Neg); Glucose Qualitative, Urine 4+ (Neg); Ketones, Urine 2+ (Neg); Leukocyte Esterase, Urine Neg (Neg); Nitrite, Urine Neg (Neg); Protein, Urine Neg (Neg); Specific Gravity, Urine 1.025 (1.003-1.022); Urobilinogen, Urine NORM (Normal)
[2019-07-04 22:21] LABS: Appearance, Urine Clear (Clear); Color, Urine Yellow (P-Yellow)
[2019-07-05] MEDS ORDERED: Carafate1 GM/10 ML PO (00:40)
[2019-07-05] MEDS ORDERED: Bentyl10 MG PO (00:40)
== END 2019-07-05 01:06 | disposition home or self-care (01) ==
LOC: ER 18:32
PROVIDERS: Emergency Medicine
DX: R10.32 Left lower quadrant pain (principal); R10.13 Epigastric pain; Z88.1 Allergy status to other antibiotic agents; Z88.8 Allergy status to other drugs, medicaments and biological substances; Z79.899 Other long term (current) drug therapy; Z79.84 Long term (current) use of oral hypoglycemic drugs; F31.9 Bipolar disorder, unspecified; E11.9 Type 2 diabetes mellitus without complications; J44.9 Chronic obstructive pulmonary disease, unspecified
CPT/HCPCS: 36415; 74177; 80053; 81003; 83690; 85025; 96361; 96374-59; 96375; 99284-25; J1885; J2405; J7030; Q9967

== ENCOUNTER 2019-07-23 17:32 | Emergency (ER) | payer OTHER ==
[~2019-07-23] VITALS: Ht 165.1 cm; Wt 109.3 kg
[~2019-07-23 17:32] MED LIST changes: +Bentyl10 MG PO
[2019-07-23 18:03] LABS: BASOPHILS ABSOLUTE AUTO 0.03 K/mm3 (0.00-0.23); BASOPHILS PERCENT AUTO 0 % (0-2); EOSINOPHILS ABSOLUTE AUTO 0.06 K/mm3 (0.00-0.68); EOSINOPHILS PERCENT AUTO 1 % (0-6); Hematocrit 39.6 % (33.0-51.0); Hemoglobin 13.1 g/dL (11.5-16.0); IMMATURE GRAN ABSOLUTE AUTO 0.05 K/mm3 (0.00-0.10); IMMATURE GRAN PERCENT AUTO 1 % (0-1); LYMPHOCYTES ABSOLUTE AUTO 2.99 K/mm3 (0.84-5.20); LYMPHOCYTES PERCENT AUTO 38 % (21-46); MONOCYTES ABSOLUTE AUTO 0.55 K/mm3 (0.16-1.47); MONOCYTES PERCENT AUTO 7 % (4-13); Mean Corpuscular HGB 30.4 pg (26.0-34.0); Mean Corpuscular HGB Conc 33.1 g/dL (31.5-36.5); Mean Corpuscular Volume 92 fL (80-100); NEUTROPHILS ABSOLUTE AUTO 4.23 K/mm3 (1.96-9.15); NEUTROPHILS PERCENT AUTO 53 % (41-73); Platelet Count 254 K/mm3 (150-400); RDW Coefficient Variation 12.7 % (11.7-14.2); RDW Standard Deviation 42.8 fL (35.1-46.3); Red Blood Cell Count 4.31 M/mm3 (3.80-5.20); White Blood Cell Count 7.91 K/mm3 (4.00-11.30)
[2019-07-23 18:27] LABS: Alanine Aminotransfer (ALT/SGP 54 U/L (12-78); Albumin, Blood 3.6 g/dL (3.4-5.0); Albumin/Globulin Ratio 0.9 (0.8-1.8); Alk Phos 60 U/L (50-136); Anion Gap 13 mmol/L (6-16); Aspartate Aminotrans (AST/SGOT 38 U/L (12-37); Bilirubin, Total 0.2 mg/dL (0.1-1.0); Blood Urea Nitrogen 14 mg/dL (8-24); Bun/Creatinine Ratio 28.1 (12.0-20.0); CO2, Blood 24 mmol/L (21-32); Calcium, Blood 9.4 mg/dL (8.5-10.1); Chloride, Blood 99 mmol/L (98-108); Glomerular Filtration Rate >60 (60-); Glucose, Blood 388 mg/dL (70-99); Potassium, Blood 4.3 mmol/L (3.5-5.5); Sodium, Blood 136 mmol/L (136-145); Total Protein, Blood 7.6 g/dL (6.4-8.2); Troponin I <0.015 ng/mL (0.000-0.040)
[2019-07-23] MEDS ORDERED: PANT40 PO (20:05)
[2019-07-23] MEDS ORDERED: MELO7.5 PO (20:06)
[2019-07-23] MEDS ORDERED: CYAN500 PO (20:07)
[2019-07-23] MEDS ORDERED: Cyclobenzaprine5 MG PO (20:07)
[2019-07-23] MEDS ORDERED: GABA300 PO (20:08)
[2019-07-23] MEDS ORDERED: Humalog100 UNIT/1 (20:10)
[2019-07-23] MEDS ORDERED: Aspir 8181 MG PO (20:11)
[2019-07-23] MEDS ORDERED: BASAGLAR SC (20:14)
== END 2019-07-23 22:53 | disposition home or self-care (01) ==
LOC: ER 17:32
PROVIDERS: Physician Assistant
DX: R07.9 Chest pain, unspecified (principal); E11.43 Type 2 diabetes mellitus with diabetic autonomic (poly)neuropathy; K31.84 Gastroparesis; J44.9 Chronic obstructive pulmonary disease, unspecified; F31.9 Bipolar disorder, unspecified; Z88.1 Allergy status to other antibiotic agents; Z88.8 Allergy status to other drugs, medicaments and biological substances; Z79.899 Other long term (current) drug therapy; Z79.84 Long term (current) use of oral hypoglycemic drugs
CPT/HCPCS: 36415; 71046; 80053; 83690; 84484; 84703; 85025; 85379; 93005; 93010; 96361; 96374; 99285-25; J1885; J7030

== ENCOUNTER 2019-12-04 21:57 | Emergency (ER) | payer OTHER ==
[~2019-12-04] VITALS: Ht 165.1 cm; Wt 107.0 kg
[~2019-12-04 21:57] MED LIST changes: +Aspir 8181 MG PO; +BASAGLAR SC; +CYAN500 PO; +Cyclobenzaprine5 MG PO; +Humalog100 UNIT/1
== END 2019-12-05 00:05 | disposition home or self-care (01) ==
LOC: ER 21:57
DX: M54.31 Sciatica, right side (principal); J44.9 Chronic obstructive pulmonary disease, unspecified; F31.9 Bipolar disorder, unspecified; E11.9 Type 2 diabetes mellitus without complications; Z88.1 Allergy status to other antibiotic agents; Z88.8 Allergy status to other drugs, medicaments and biological substances; Z79.899 Other long term (current) drug therapy
CPT/HCPCS: 96372; 99283; J1100; J1885

== ENCOUNTER 2020-09-18 09:53 | Emergency (ER) | payer OTHER ==
[~2020-09-18] VITALS: Ht 165.1 cm; Wt 106.1 kg
[2020-09-18] MEDS ORDERED: Norco 7.5-3251 EACH PO (16:08)
== END 2020-09-18 16:21 | disposition home or self-care (01) ==
LOC: ER 09:53
DX: M47.22 Other spondylosis with radiculopathy, cervical region (principal); F31.9 Bipolar disorder, unspecified; E11.9 Type 2 diabetes mellitus without complications; J44.9 Chronic obstructive pulmonary disease, unspecified; F41.9 Anxiety disorder, unspecified; Z79.4 Long term (current) use of insulin; Z79.82 Long term (current) use of aspirin; Z79.899 Other long term (current) drug therapy; Z88.1 Allergy status to other antibiotic agents; Z79.3 Long term (current) use of hormonal contraceptives
CPT/HCPCS: 72040; 99283-25

== ENCOUNTER 2020-12-16 18:09 | Emergency (ER) | payer OTHER ==
[~2020-12-16] VITALS: Ht 165.1 cm; Wt 106.6 kg
[~2020-12-16 18:09] MED LIST changes: +Norco 7.5-3251 EACH PO
[2020-12-16 18:50] LABS: BASOPHILS ABSOLUTE AUTO 0.05 K/mm3 (0.00-0.23); BASOPHILS PERCENT AUTO 1 % (0-2); EOSINOPHILS ABSOLUTE AUTO 0.09 K/mm3 (0.00-0.68); EOSINOPHILS PERCENT AUTO 1 % (0-6); Hemoglobin 12.2 g/dL (11.5-16.0); IMMATURE GRAN ABSOLUTE AUTO 0.07 K/mm3 (0.00-0.10); IMMATURE GRAN PERCENT AUTO 1 % (0-1); LYMPHOCYTES ABSOLUTE AUTO 3.53 K/mm3 (0.84-5.20); LYMPHOCYTES PERCENT AUTO 40 % (21-46); MONOCYTES ABSOLUTE AUTO 0.49 K/mm3 (0.16-1.47); MONOCYTES PERCENT AUTO 6 % (4-13); Mean Corpuscular HGB 29.2 pg (26.0-34.0); Mean Corpuscular Volume 89 fL (80-100); Mean Platelet Volume 9.9 fL (9.1-12.4); NEUTROPHILS ABSOLUTE AUTO 4.64 K/mm3 (1.96-9.15); NEUTROPHILS PERCENT AUTO 52 % (41-73); Platelet Count 284 K/mm3 (150-400); RDW Coefficient Variation 13.5 % (11.7-14.2); RDW Standard Deviation 43.7 fL (35.1-46.3); Red Blood Cell Count 4.18 M/mm3 (3.80-5.20); White Blood Cell Count 8.87 K/mm3 (4.00-11.30)
[2020-12-16 19:09] LABS: Alanine Aminotransfer (ALT/SGP 36 U/L (12-78); Albumin, Blood 3.3 g/dL (3.4-5.0); Albumin/Globulin Ratio 0.9 (0.8-1.8); Alk Phos 52 U/L (50-136); Anion Gap 10 mmol/L (6-16); Aspartate Aminotrans (AST/SGOT 49 U/L (12-37); Bilirubin, Total 0.2 mg/dL (0.1-1.0); Blood Urea Nitrogen 10 mg/dL (8-24); Bun/Creatinine Ratio 25.6 (12.0-20.0); CO2, Blood 24 mmol/L (21-32); Calcium, Blood 9.3 mg/dL (8.5-10.1); Chloride, Blood 100 mmol/L (98-108); Creatinine, Blood 0.39 mg/dL (0.40-1.00); Globulin, Blood 3.7 g/dL (2.2-4.0); Glomerular Filtration Rate >60 (60-); Glucose, Blood 221 mg/dL (70-99); Potassium, Blood 3.8 mmol/L (3.5-5.5); Sodium, Blood 134 mmol/L (136-145)
[2020-12-16 19:21] LABS: Source, Urine Clean Catch
[2020-12-16 19:28] LABS: Appearance, Urine Clear (Clear); Bilirubin, Urine Neg (Neg); Blood, Urine Neg (Neg); Color, Urine Yellow (P-Yellow); Glucose Qualitative, Urine 3+ (Neg); Ketones, Urine 3+ (Neg); Leukocyte Esterase, Urine 1+ (Neg); Nitrite, Urine Neg (Neg); Protein, Urine 1+ (Neg); Specific Gravity, Urine 1.025 (1.003-1.022); Urobilinogen, Urine NORM (Normal)
[2020-12-16 19:37] LABS: Bacteria Few /hpf; Red Blood Cells, Urine Not Seen /hpf (0-2); Squamous Epithelial Cells Few /hpf (Few)
== END 2020-12-17 01:33 | disposition home or self-care (01) ==
LOC: ER 18:09
PROVIDERS: Emergency Medicine
DX: R10.84 Generalized abdominal pain (principal); R11.2 Nausea with vomiting, unspecified; R19.7 Diarrhea, unspecified; E11.43 Type 2 diabetes mellitus with diabetic autonomic (poly)neuropathy; K31.84 Gastroparesis; J44.9 Chronic obstructive pulmonary disease, unspecified; K21.9 Gastro-esophageal reflux disease without esophagitis; Z79.3 Long term (current) use of hormonal contraceptives; Z79.82 Long term (current) use of aspirin; Z79.899 Other long term (current) drug therapy; Z88.1 Allergy status to other antibiotic agents; Z88.8 Allergy status to other drugs, medicaments and biological substances
CPT/HCPCS: 36415; 74177; 80053; 81001; 81025; 83690; 85025; 87086; 96361; 96374-59; 96375; 99284-25; A9270; J1885; J2405; J7030; Q9967

== ENCOUNTER 2021-04-04 13:32 | Emergency (ER) | payer OTHER ==
[~2021-04-04] VITALS: Ht 165.1 cm; Wt 109.3 kg
[2021-04-04 14:38] LABS: BASOPHILS ABSOLUTE AUTO 0.02 K/mm3 (0.00-0.23); BASOPHILS PERCENT AUTO 0 % (0-2); EOSINOPHILS ABSOLUTE AUTO 0.11 K/mm3 (0.00-0.68); EOSINOPHILS PERCENT AUTO 2 % (0-6); Hematocrit 32.6 % (33.0-51.0); Hemoglobin 10.3 g/dL (11.5-16.0); IMMATURE GRAN ABSOLUTE AUTO 0.05 K/mm3 (0.00-0.10); IMMATURE GRAN PERCENT AUTO 1 % (0-1); LYMPHOCYTES ABSOLUTE AUTO 2.21 K/mm3 (0.84-5.20); LYMPHOCYTES PERCENT AUTO 31 % (21-46); MONOCYTES PERCENT AUTO 7 % (4-13); Mean Corpuscular HGB 27.6 pg (26.0-34.0); Mean Corpuscular HGB Conc 31.6 g/dL (31.5-36.5); Mean Corpuscular Volume 87 fL (80-100); Mean Platelet Volume 10.1 fL (9.1-12.4); NEUTROPHILS ABSOLUTE AUTO 4.36 K/mm3 (1.96-9.15); NEUTROPHILS PERCENT AUTO 60 % (41-73); Platelet Count 282 K/mm3 (150-400); RDW Coefficient Variation 13.3 % (11.7-14.2); RDW Standard Deviation 42.6 fL (35.1-46.3); Red Blood Cell Count 3.73 M/mm3 (3.80-5.20); White Blood Cell Count 7.25 K/mm3 (4.00-11.30)
[2021-04-04 14:51] LABS: Alanine Aminotransfer (ALT/SGP 29 U/L (12-78); Albumin, Blood 3.1 g/dL (3.4-5.0); Albumin/Globulin Ratio 0.9 (0.8-1.8); Alk Phos 48 U/L (50-136); Anion Gap 10 mmol/L (6-16); Aspartate Aminotrans (AST/SGOT 38 U/L (12-37); Bilirubin, Total 0.3 mg/dL (0.1-1.0); Blood Urea Nitrogen 9 mg/dL (8-24); Bun/Creatinine Ratio 18.2 (12.0-20.0); CO2, Blood 23 mmol/L (21-32); Calcium, Blood 8.4 mg/dL (8.5-10.1); Chloride, Blood 102 mmol/L (98-108); Globulin, Blood 3.6 g/dL (2.2-4.0); Glomerular Filtration Rate >60 (60-); Glucose, Blood 238 mg/dL (70-99); Potassium, Blood 4.1 mmol/L (3.5-5.5); Sodium, Blood 135 mmol/L (136-145); Total Protein, Blood 6.7 g/dL (6.4-8.2); Troponin I <0.015 ng/mL (0.000-0.040)
[2021-04-04] MEDS ORDERED: IBUP800 PO (19:29)
== END 2021-04-04 19:43 | disposition home or self-care (01) ==
LOC: ER 13:32
PROVIDERS: Physician Assistant
DX: R07.89 Other chest pain (principal); I10 Essential (primary) hypertension; E11.9 Type 2 diabetes mellitus without complications; J44.9 Chronic obstructive pulmonary disease, unspecified; Z79.4 Long term (current) use of insulin; Z79.899 Other long term (current) drug therapy; Z88.1 Allergy status to other antibiotic agents; Z88.8 Allergy status to other drugs, medicaments and biological substances
CPT/HCPCS: 36415; 71046; 80053; 83690; 83880; 84484; 85025; 93005; 93010; 96374; 99285-25; J1885

== ENCOUNTER 2021-06-15 14:18 | Inpatient (IN) | payer OTHER ==
[~2021-06-15] VITALS: Ht 165.1 cm; Wt 99.3 kg
[~2021-06-15 14:18] MED LIST changes: -Glucophage1000 MG PO; +HUMALOG100 UNIT/1 SC; -Humalog100 UNIT/1; +IBUP800 PO
[2021-06-15 15:40] LABS: BASOPHILS ABSOLUTE AUTO 0.03 K/mm3 (0.00-0.23); BASOPHILS PERCENT AUTO 0 % (0-2); EOSINOPHILS ABSOLUTE AUTO 0.08 K/mm3 (0.00-0.68); EOSINOPHILS PERCENT AUTO 1 % (0-6); Hematocrit 28.5 % (33.0-51.0); Hemoglobin 8.8 g/dL (11.5-16.0); Mean Corpuscular HGB 26.5 pg (26.0-34.0); Mean Corpuscular HGB Conc 30.9 g/dL (31.5-36.5); Mean Corpuscular Volume 86 fL (80-100); Mean Platelet Volume 9.2 fL (9.1-12.4); Platelet Count 333 K/mm3 (150-400); RDW Coefficient Variation 14.9 % (11.7-14.2); RDW Standard Deviation 45.9 fL (35.1-46.3); Red Blood Cell Count 3.32 M/mm3 (3.80-5.20); White Blood Cell Count 7.13 K/mm3 (4.00-11.30)
[2021-06-15 15:43] LABS: IMMATURE GRAN PERCENT AUTO 1 % (0-1); LYMPHOCYTES ABSOLUTE AUTO 2.17 K/mm3 (0.84-5.20); LYMPHOCYTES PERCENT AUTO 30 % (21-46); MONOCYTES ABSOLUTE AUTO 0.47 K/mm3 (0.16-1.47); MONOCYTES PERCENT AUTO 7 % (4-13); NEUTROPHILS ABSOLUTE AUTO 4.28 K/mm3 (1.96-9.15); NEUTROPHILS PERCENT AUTO 60 % (41-73)
[2021-06-15 16:04] LABS: Alanine Aminotransfer (ALT/SGP 17 U/L (12-78); Albumin/Globulin Ratio 0.8 (0.8-1.8); Alk Phos 53 U/L (50-136); Anion Gap 5 mmol/L (6-16); Aspartate Aminotrans (AST/SGOT 21 U/L (12-37); Bilirubin, Total 0.2 mg/dL (0.1-1.0); Blood Urea Nitrogen 8 mg/dL (8-24); Bun/Creatinine Ratio 16.9 (12.0-20.0); CO2, Blood 30 mmol/L (21-32); Calcium, Blood 8.9 mg/dL (8.5-10.1); Chloride, Blood 102 mmol/L (98-108); Creatinine, Blood 0.47 mg/dL (0.40-1.00); Globulin, Blood 3.9 g/dL (2.2-4.0); Glomerular Filtration Rate >60 (60-); Glucose, Blood 150 mg/dL (70-99); Potassium, Blood 3.3 mmol/L (3.5-5.5); Sodium, Blood 137 mmol/L (136-145); Total Protein, Blood 6.9 g/dL (6.4-8.2); Troponin I <0.015 ng/mL (0.000-0.040)
[2021-06-16 05:22] LABS: BASOPHILS ABSOLUTE AUTO 0.03 K/mm3 (0.00-0.23); BASOPHILS PERCENT AUTO 0 % (0-2); EOSINOPHILS ABSOLUTE AUTO 0.09 K/mm3 (0.00-0.68); EOSINOPHILS PERCENT AUTO 1 % (0-6); Hematocrit 27.2 % (33.0-51.0); Hemoglobin 8.4 g/dL (11.5-16.0); IMMATURE GRAN ABSOLUTE AUTO 0.08 K/mm3 (0.00-0.10); IMMATURE GRAN PERCENT AUTO 1 % (0-1); LYMPHOCYTES PERCENT AUTO 29 % (21-46); MONOCYTES ABSOLUTE AUTO 0.46 K/mm3 (0.16-1.47); MONOCYTES PERCENT AUTO 6 % (4-13); Mean Corpuscular HGB 26.2 pg (26.0-34.0); Mean Corpuscular HGB Conc 30.9 g/dL (31.5-36.5); Mean Corpuscular Volume 85 fL (80-100); Mean Platelet Volume 9.2 fL (9.1-12.4); NEUTROPHILS ABSOLUTE AUTO 5.05 K/mm3 (1.96-9.15); NEUTROPHILS PERCENT AUTO 63 % (41-73); Platelet Count 341 K/mm3 (150-400); RDW Coefficient Variation 14.9 % (11.7-14.2); RDW Standard Deviation 45.8 fL (35.1-46.3); Red Blood Cell Count 3.21 M/mm3 (3.80-5.20); White Blood Cell Count 8.01 K/mm3 (4.00-11.30)
[2021-06-16 06:02] LABS: Iron Serum 26 ug/dL (50-170)
[2021-06-16 06:03] LABS: Anion Gap 7 mmol/L (6-16); Blood Urea Nitrogen 7 mg/dL (8-24); Bun/Creatinine Ratio 12.3 (12.0-20.0); CO2, Blood 32 mmol/L (21-32); Calcium, Blood 8.9 mg/dL (8.5-10.1); Chloride, Blood 99 mmol/L (98-108); Creatinine, Blood 0.57 mg/dL (0.40-1.00); Ferritin, Serum 29 ng/mL (8-252); Glomerular Filtration Rate >60 (60-); Glucose, Blood 228 mg/dL (70-99); Potassium, Blood 3.3 mmol/L (3.5-5.5); Sodium, Blood 138 mmol/L (136-145); Total Iron Binding Capacity 369 ug/dL (250-450); Troponin I <0.015 ng/mL (0.000-0.040)
[2021-06-16] MEDS ORDERED: VITAMIN C125 MG PO (16:16)
[2021-06-16] MEDS ORDERED: BUTALB-ACETAMI1 EAC6 PO (16:17)
[2021-06-16] MEDS ORDERED: CALCIUM 500 MG1 EAC2 PO (16:17)
[2021-06-16] MEDS ORDERED: CLON.1 PO (16:18)
[2021-06-16] MEDS ORDERED: DESV50 PO (16:19)
[2021-06-16] MEDS ORDERED: Bentyl10 MG PO (16:20)
[2021-06-16] MEDS ORDERED: FERSU300 PO (16:21)
[2021-06-16] MEDS ORDERED: CLIMARA1 EACH PO (16:21)
[2021-06-16] MEDS ORDERED: GLIP5 PO (16:25)
[2021-06-16] MEDS ORDERED: INDO50 PO (16:27)
[2021-06-16] MEDS ORDERED: MELA3 PO (16:27)
[2021-06-16] MEDS ORDERED: OLAN5 PO (16:29)
[2021-06-16] MEDS ORDERED: Robaxin750 MG PO (16:29)
[2021-06-16] MEDS ORDERED: ONDA4ODT MM (16:30)
[2021-06-16] MEDS ORDERED: PRAV20 PO (16:30)
[2021-06-16] MEDS ORDERED: INSULANPEN SC (16:31)
[2021-06-16] MEDS ORDERED: ACET500 PO (16:31)
--- NOTE | 2021-06-16 17:17 | NUR ---
Echocardiogram completed.
--- NOTE | 2021-06-16 18:04 | NUR ---
PATIENT IS ALERT AND ORIENTED. SHE IS HYPERTENSIVE, MEDICATED PER EMAR. C/O GERD, MEDICATED PER EMAR. WILL CONTINUE TO MONITOR BP. PATIENT IS INDEPENDENT IN HER ROOM. SHE IS TEARFUL ABOUT HER NEW DIAGNOSIS OF CHF, SHE STATES THAT SHE IS SCARED. SHE WOULD LIKE TO TALK TO PALLIATIVE CARE ABOUT AN ADVANCED DIRECTIVE. WILL CONTINUE TO MONITOR
--- NOTE | 2021-06-17 06:31 | NUR ---
call light in reach, states she slept better than last few nights, still had migrain, medicated but could not eliminate, fluids infusing with no s/sx of infection or inriltration, will continue to monitor until share bsr with noc nurse and pt
--- NOTE | 2021-06-17 07:21 | NUR ---
pt continues to have high bp, medicated as prescribed but bp remained above 180 most of the shift, informed hospitalist who recommened continuing to medicate as prescribed
[2021-06-17 08:04] LABS: Hematocrit 29.7 % (33.0-51.0); Hemoglobin 9.1 g/dL (11.5-16.0)
[2021-06-17 08:26] LABS: Anion Gap 5 mmol/L (6-16); Blood Urea Nitrogen 10 mg/dL (8-24); Bun/Creatinine Ratio 22.5 (12.0-20.0); CO2, Blood 31 mmol/L (21-32); Calcium, Blood 9.5 mg/dL (8.5-10.1); Chloride, Blood 100 mmol/L (98-108); Creatinine, Blood 0.44 mg/dL (0.40-1.00); Ferritin, Serum 34 ng/mL (8-252); Glomerular Filtration Rate >60 (60-); Glucose, Blood 190 mg/dL (70-99); Iron Serum 33 ug/dL (50-170); Percent Saturation 8.5 % (15.0-50.0); Potassium, Blood 3.4 mmol/L (3.5-5.5); Sodium, Blood 136 mmol/L (136-145); Total Iron Binding Capacity 388 ug/dL (250-450)
--- NOTE | 2021-06-17 17:25 | NUR ---
SHIFT SUMMARY PT AXO PLEASANT AND COOPERATIVE WITH CARE. HTN NOTED AT BEGINNING OF SHIFT, MEDICATED PER EMAR. BP TRENDING DOWN THROUGHOUT THE SHIFT. PT COMPLAINED OF MIGRAINE BUT DID NOT WANT THE MEDICATION ON EMAR STATING THAT "IT'S NOT WORKING." AT 1310 PT COMPLAINED OF CHEST PAIN. SHE STATES THAT IT STARTED WHILE SHE WAS EATING, 6/10 IN SEVERITY, AND DESCRIBES IT AN ACHE WITH INTERMITTANT SHARP PAIN. DR FITZPATRICK NOTIFIED AND NEW ORDERS INITIATED. EKG COMPLETED, SEE RESULTS AND TROPONINS DELTA, SEE LABS. PT ENCOURAGED TO AMBULATE AND BE OOB. PT ALSO EDUCATED ON IMPORTANCE OF MANAGING DIABETES AT HOME INCLUDING TAKING MEDICATIONS PRESCRIBED AND CHECKING BLOOD SUGAR. PT STATES THAT HER CPAP AT HOME IS ALSO BROKEN. PT'S SPOUSE CALLED TODAY AND STATED THAT IF HER DAUGHTERS WANDA HANCOCK AND SHAMA HANCOCK TRY TO COME VISIT, THEY ARE NOT ALLOWED TO. GUIAC SAMPLE SENT TO LAB, RESULTS PENDING THOUGH BENEFITS PROCESSOR STATED THAT "THERE WAS ALOT OF BLOOD IN THE TOILET." PATIENT ALSO STATES THAT THIS IS NORMAL FOR HER AND THAT SHE HAS AN UPPER AND LOWER SCOPE SCHEDULED OUTPATIENT. BED IN LOW POSITION, CALL LIGHT WITHIN REACH. PT RESTING IN BED AT THIS TIME.
--- NOTE | 2021-06-18 04:26 | NUR ---
SUMMARY: PT A/OX4, CALLS APPROPRIATELY AND IS INDEPENDENT IN ROOM. ADA SNACKS AND DRINKS PROVIDED T/O NOCTE PER PT REQUEST. SHE RECIEVED MELATONIN AT HS SLEEP AID. PT AWOKE W/MIGRAINE NIELSEN AGAIN TONIGHT, FIORACET RECIEVED PRN FOR SOME RELIEF. SHE ALSO C/O PAIN TO FEET R/T TO 2+ EDEMA, SCHEDULED LASIX TO BE RECIEVED TODAY. PT INQUIRED ABOUT GUAIAC RESULT BUT IT'S STILL PENDING. CBC TO BE DRAWN THIS AM TO FURTHER EVALUATE S/S BLEEDING. SHE'S SLIGHTLY HYPERTENSIVE AGAIN THIS AM (SBP 162) BUT PRN HYDRALAZINE NOT REQUIRED PER PARAMETERS, SCHEDULED AM BP MEDS TO BE RECIEVED. PT REMAINS ON TELEMETRY IN S.TACH 90'S-100'S BPM. NO ACUTE CHANGES, VSS/AFEBRILE. WCTM AND REPORT TO DAY RN.
[2021-06-18 05:21] LABS: Hematocrit 29.3 % (33.0-51.0); Hemoglobin 8.9 g/dL (11.5-16.0); Mean Corpuscular HGB 26.1 pg (26.0-34.0); Mean Corpuscular HGB Conc 30.4 g/dL (31.5-36.5); Mean Corpuscular Volume 86 fL (80-100); Platelet Count 371 K/mm3 (150-400); RDW Coefficient Variation 15.4 % (11.7-14.2); RDW Standard Deviation 47.9 fL (35.1-46.3); Red Blood Cell Count 3.41 M/mm3 (3.80-5.20); White Blood Cell Count 8.67 K/mm3 (4.00-11.30)
[2021-06-18 06:01] LABS: Anion Gap 6 mmol/L (6-16); Blood Urea Nitrogen 15 mg/dL (8-24); Bun/Creatinine Ratio 21.6 (12.0-20.0); CO2, Blood 31 mmol/L (21-32); Calcium, Blood 9.7 mg/dL (8.5-10.1); Chloride, Blood 99 mmol/L (98-108); Creatinine, Blood 0.69 mg/dL (0.40-1.00); Glomerular Filtration Rate >60 (60-); Glucose, Blood 174 mg/dL (70-99); Potassium, Blood 3.9 mmol/L (3.5-5.5); Sodium, Blood 136 mmol/L (136-145)
[2021-06-18 14:14] LABS: Stool Occult Blood Guaiac 1 Pos (Neg)
--- NOTE | 2021-06-18 16:37 | NUR ---
SHIFT SUMMARY PT AxOx4. PLEASANT AND COOPERATIVE WITH CARE. PT IS INDEPENDENT IN THE ROOM. REPORTS HEADACHE AND SOB WITH ACTIVITY THIS SHIFT. TELE RUNNING SR AT 79. PT IN FOR VISIT TODAY, AND UPDATED ON PLAN OF CARE. CURRENT PLAN IS TO CONTINUE DIURESING AND POSSIBLE DC TOMORROW. VITALS REVIEWED. PT CURRENTLY RESTING IN BED WITH CALL LIGHT IN REACH. PT DENIES ANY NEEDS AT THIS TIME.
--- NOTE | 2021-06-19 04:18 | NUR ---
SHIFT SUMMARY ADMITTED FOR NEW ONSET CHF. FULL CODE. SHE IS HOPEFUL FOR DC HOME TODAY. TELEMETRY: NSR @ 96 BPM. WE HAVE BEEN DIURESING HER. SHE WAS PRESCRIBED CPAP, BUT HAS NOT BEEN USING HERS AT HOME. SHE IS A&O X4, INDEPENDENT. HX: COPD, ANXIETY, BIPOLAR, COPD, ASTHMA, DM2, ECHO,
[2021-06-19 06:09] LABS: Anion Gap 3 mmol/L (6-16); Blood Urea Nitrogen 19 mg/dL (8-24); Bun/Creatinine Ratio 24.6 (12.0-20.0); CO2, Blood 34 mmol/L (21-32); Calcium, Blood 9.5 mg/dL (8.5-10.1); Chloride, Blood 98 mmol/L (98-108); Creatinine, Blood 0.77 mg/dL (0.40-1.00); Glomerular Filtration Rate >60 (60-); Glucose, Blood 181 mg/dL (70-99); Potassium, Blood 3.8 mmol/L (3.5-5.5); Sodium, Blood 135 mmol/L (136-145)
[2021-06-19] MEDS ORDERED: SPIR25 PO (11:17)
[2021-06-19] MEDS ORDERED: ASPI81CH PO (11:17)
[2021-06-19] MEDS ORDERED: FURO40 PO (11:17)
[2021-06-19] MEDS ORDERED: METO25ER PO (11:17)
--- NOTE | 2021-06-19 13:44 | NUR ---
DISCHARGE PT DISCHARGED AND ESCORTED OUT BY AIDE VIA WHEEL CHAIR. PRIOR TO DC, PT WAS EDUCATED BY PHARMACY ON NEW MEDS AND ON CALORIE COUNT BY TEXTILE COLORIST FORMULATOR. PT EDUCATED BY THIS RN WITH IN ROOM ABOUT CHF AND NEEDED FOLLOW UP APPOINTMENTS. PT EDUCATED ON SIGNS OF HYPOGLYCEMIA PRIOR TO DC. PT GIVEN HARD SCRIPT FOR A GLUCOMETER AND FOR A NOTE FOR HER EMPLOYER. PT & DENIED FURTHER QUESTIONS PRIOR TO LEAVING.
[2021-07-25] MEDS ORDERED: Acerola C500 MG PO (11:04)
[2021-07-25] MEDS ORDERED: GLIP5 PO (11:05)
[2021-07-25] MEDS ORDERED: CLIMARA1 EACH TOP (11:05)
[2021-07-25] MEDS ORDERED: FERROUS SULFAT325 M3 PO (11:05)
[2021-07-25] MEDS ORDERED: METF500 PO (11:06)
[2021-07-25] MEDS ORDERED: Lisinopril2.5 MG PO (11:06)
[2021-07-25] MEDS ORDERED: Robaxin750 MG PO (11:07)
== END 2021-06-19 13:49 | disposition home or self-care (01) | DRG 291 ==
LOC: ER 14:18 → ERHOLD 14:19 → EDBEDREQ 06-16 02:01 → MEDS 06-16 14:45
PROVIDERS: Emergency Medicine; Internal Medicine; ADMIT Family Medicine
DX: I11.0 Hypertensive heart disease with heart failure (principal); I50.31 Acute diastolic (congestive) heart failure; I27.81 Cor pulmonale (chronic); I27.29 Other secondary pulmonary hypertension; D64.9 Anemia, unspecified; E11.9 Type 2 diabetes mellitus without complications; J44.9 Chronic obstructive pulmonary disease, unspecified; F31.9 Bipolar disorder, unspecified; K58.9 Irritable bowel syndrome, unspecified; F41.9 Anxiety disorder, unspecified; E78.5 Hyperlipidemia, unspecified; G47.33 Obstructive sleep apnea (adult) (pediatric); G43.809 Other migraine, not intractable, without status migrainosus; F40.240 Claustrophobia; E87.6 Hypokalemia; E66.9 Obesity, unspecified; Z68.36 Body mass index [BMI] 36.0-36.9, adult; Z88.1 Allergy status to other antibiotic agents; Z88.5 Allergy status to narcotic agent; Z79.899 Other long term (current) drug therapy; Z79.1 Long term (current) use of non-steroidal anti-inflammatories (NSAID); Z79.82 Long term (current) use of aspirin; Z79.890 Hormone replacement therapy; Z79.4 Long term (current) use of insulin
CPT/HCPCS: 36415; 71046; 71260; 80048; 80053; 82272; 82607; 82728; 82746; 82947; 83540; 83550; 83690; 83880; 84145; 84484; 85014; 85018; 85025; 85027; 85379; 93005; 93010; 93306; 94640; 94760; 96374; 96375; 96376; 99285-25; A9270; G0378; J0360; J1815; J1940; Q9967

== ENCOUNTER 2021-07-26 09:05 | Day surgery (SDC) | payer OTHER ==
[~2021-07-26] VITALS: Ht 165.1 cm; Wt 96.2 kg
[~2021-07-26 09:05] MED LIST changes: +ACET500 PO; +Acerola C500 MG PO; +BUTALB-ACETAMI1 EAC6 PO; +CALCIUM 500 MG1 EAC2 PO; +CLIMARA1 EACH PO; +CLIMARA1 EACH TOP; +DESV50 PO; +FERROUS SULFAT325 M3 PO; +FERSU300 PO; +FURO40 PO; +GLIP5 PO; +INSULANPEN SC; +Lisinopril2.5 MG PO; +MELA3 PO; +METO25ER PO; +PRAV20 PO; +Robaxin750 MG PO; +SPIR25 PO; +VITAMIN C125 MG PO
[2021-07-26] MEDS ORDERED: ASPI81CH PO (09:30)
[2021-07-26] MEDS ORDERED: BUTALB-ACETAMI1 EAC6 PO (09:31)
[2021-07-26] MEDS ORDERED: DESV50 PO (09:32)
[2021-07-26] MEDS ORDERED: BENTYL10 MG/1 ML IM (09:33)
[2021-07-26] MEDS ORDERED: FURO40 PO (09:35)
[2021-07-26] MEDS ORDERED: GABAPENTIN600 MG PO (09:36)
[2021-07-26] MEDS ORDERED: INSULANPEN SC (09:39)
[2021-07-26] MEDS ORDERED: HUMALOG KW100 UNIT/1 SC (09:41)
[2021-07-26] MEDS ORDERED: METO25 PO (09:44)
[2021-07-26] MEDS ORDERED: MELATONIN5 M1 PO (09:44)
[2021-07-26] MEDS ORDERED: MONT10T PO (09:47)
[2021-07-26] MEDS ORDERED: NORT25 PO (09:48)
[2021-07-26] MEDS ORDERED: OLAN5 PO (09:48)
[2021-07-26] MEDS ORDERED: ONDA4 PO (09:50)
[2021-07-26] MEDS ORDERED: PANT40 PO (09:50)
[2021-07-26] MEDS ORDERED: CLON.1 PO (09:52)
[2021-07-26] MEDS ORDERED: SPIR25 PO (09:52)
[2021-07-26] MEDS ORDERED: Robaxin750 MG PO (09:56)
--- NOTE | 2021-07-26 10:10 | NUR ---
Ambulatory in [facility] warming gown applied. Patient states colon prep results clear. History, Chart, Medications and Allergies reviewed before start of procedure.Lungs clear T/O to Auscultation. Patient confirms NPO status and agrees with scheduled surgery. Pre-Op teaching done. Pt verbalizes understanding. Patient States Post-Procedure ride home has been arranged.
--- NOTE | 2021-07-26 12:40 | NUR ---
Patient up to Ambulate independently. Gait steady. Discharge instructions reviewed with patient. Patient verbalizes understanding. Copy given to patient to take home.FAMILY ALSO INSTRUCTED ON D/C INSTRUCTIONS. Patient States Post-Procedure ride home has been arranged. Discharged via wheelchair to private car for ride home.
== END 2021-07-26 12:40 | disposition home or self-care (01) ==
LOC: ORSCMMR 09:05
PROVIDERS: Student in an Organized Health Care Education/Training Program
PROC: 0DBE8ZX Excision of Large Intestine, Via Natural or Artificial Opening Endoscopic, Diagnostic (ICD-10-PCS; principal; 2021-07-26 10:45)
PROC: 0DB78ZX Excision of Stomach, Pylorus, Via Natural or Artificial Opening Endoscopic, Diagnostic (ICD-10-PCS; principal; 2021-07-26 10:45)
PROC: 0DB98ZX Excision of Duodenum, Via Natural or Artificial Opening Endoscopic, Diagnostic (ICD-10-PCS; principal; 2021-07-26 10:45)
DX: K92.1 Melena (principal); K31.7 Polyp of stomach and duodenum; K21.9 Gastro-esophageal reflux disease without esophagitis; I10 Essential (primary) hypertension; G47.33 Obstructive sleep apnea (adult) (pediatric); E11.9 Type 2 diabetes mellitus without complications; J45.909 Unspecified asthma, uncomplicated; E66.9 Obesity, unspecified; Z68.35 Body mass index [BMI] 35.0-35.9, adult; I50.9 Heart failure, unspecified; Z79.84 Long term (current) use of oral hypoglycemic drugs; Z79.899 Other long term (current) drug therapy; F31.9 Bipolar disorder, unspecified
CPT/HCPCS: 82947; 88305; 88342; J2370; J2704; J3010; J7120

== ENCOUNTER 2022-05-16 15:16 | Emergency (ER) | payer OTHER ==
[~2022-05-16] VITALS: Ht 165.1 cm; Wt 86.2 kg
[~2022-05-16 15:16] MED LIST changes: +BENTYL10 MG/1 ML IM; +GABAPENTIN600 MG PO; +HUMALOG KW100 UNIT/1 SC; +MELATONIN5 M1 PO; +METO25 PO; +ONDA4 PO
[2022-05-16 15:47] LABS: Hematocrit 31.4 % (33.0-51.0); Hemoglobin 9.3 g/dL (11.5-16.0); Mean Corpuscular HGB 22.7 pg (26.0-34.0); Mean Corpuscular HGB Conc 29.6 g/dL (31.5-36.5); Mean Corpuscular Volume 77 fL (80-100); Mean Platelet Volume 9.9 fL (9.1-12.4); Platelet Count 295 K/mm3 (150-400); RDW Standard Deviation 46.5 fL (35.1-46.3); Red Blood Cell Count 4.09 M/mm3 (3.80-5.20); White Blood Cell Count 5.28 K/mm3 (4.00-11.30)
[2022-05-16 16:08] LABS: Albumin, Blood 3.3 g/dL (3.4-5.0); Albumin/Globulin Ratio 0.9 (0.8-1.8); Bilirubin, Total 0.3 mg/dL (0.1-1.0); Calcium, Blood 9.3 mg/dL (8.5-10.1); Creatinine, Blood 0.67 mg/dL (0.40-1.00); Globulin, Blood 3.8 g/dL (2.2-4.0); Potassium, Blood 3.8 mmol/L (3.5-5.5); Total Protein, Blood 7.1 g/dL (6.4-8.2)
[2022-05-16 16:17] LABS: BAND PERCENT MAN 2 % (0-8); BASOPHILS PERCENT MAN 2 % (0-2); EOSINOPHILS ABSOLUTE MAN 0.05 K/mm3 (0.00-0.68); EOSINOPHILS PERCENT MAN 1 % (0-6); LYMPHOCYTES ABSOLUTE MAN 2.27 K/mm3 (0.84-5.20); LYMPHOCYTES PERCENT MAN 43 % (21-46); METAMYELOCYTE ABSOLUTE MAN 0.05 K/mm3 (0.00-0.00); METAMYELOCYTE PERCENT MAN 1 % (0-0); MONOCYTES ABSOLUTE MAN 0.21 K/mm3 (0.16-1.47); MONOCYTES PERCENT MAN 4 % (4-13); NEUTROPHILS ABSOLUTE MAN 2.58 K/mm3 (1.96-9.15); SEG NEUTROPHILS PERCENT MAN 47 % (41-73); TOTAL CELLS COUNTED 100
[2022-05-16 18:00] LABS: Influenza A, PCR NEGATIVE (NEGATIVE); Influenza B, PCR NEGATIVE (NEGATIVE); Resp Syncytial Virus, PCR NEGATIVE (NEGATIVE)
[2022-05-16 18:15] LABS: SARS-Cov-2 (COVID-19) PCR, MMC POSITIVE (NEGATIVE)
== END 2022-05-16 19:10 | disposition home or self-care (01) ==
LOC: ER 15:16
PROVIDERS: Emergency Medicine
DX: I47.1 Supraventricular tachycardia (principal); U07.1 COVID-19; Z79.899 Other long term (current) drug therapy; I10 Essential (primary) hypertension; E11.9 Type 2 diabetes mellitus without complications; J44.9 Chronic obstructive pulmonary disease, unspecified; Z79.4 Long term (current) use of insulin; Z88.1 Allergy status to other antibiotic agents; Z88.5 Allergy status to narcotic agent
CPT/HCPCS: 0241U; 36415; 36416; 80053; 84443; 85025; 87086; 93005; 93010; 96365; 96375; 99285-25; J0153; J2543; J2930; J7030

== ENCOUNTER 2022-06-09 20:33 | Emergency (ER) | payer OTHER ==
[~2022-06-09] VITALS: Ht 165.1 cm; Wt 111.0 kg
[2022-06-09 22:16] LABS: Hematocrit 28.2 % (33.0-51.0); Hemoglobin 8.3 g/dL (11.5-16.0); Mean Corpuscular HGB 23.6 pg (26.0-34.0); Mean Corpuscular HGB Conc 29.4 g/dL (31.5-36.5); Mean Corpuscular Volume 80 fL (80-100); Mean Platelet Volume 9.3 fL (9.1-12.4); Platelet Count 272 K/mm3 (150-400); RDW Coefficient Variation 18.1 % (11.7-14.2); RDW Standard Deviation 53.3 fL (35.1-46.3); Red Blood Cell Count 3.52 M/mm3 (3.80-5.20); White Blood Cell Count 7.18 K/mm3 (4.00-11.30)
[2022-06-09 22:35] LABS: Albumin/Globulin Ratio 0.8 (0.8-1.8); Bilirubin, Total 0.2 mg/dL (0.1-1.0); Bun/Creatinine Ratio 15.1 (12.0-20.0); Calcium, Blood 9.1 mg/dL (8.5-10.1); Creatinine, Blood 0.66 mg/dL (0.40-1.00); Globulin, Blood 3.7 g/dL (2.2-4.0); Potassium, Blood 4.3 mmol/L (3.5-5.5); Total Protein, Blood 6.7 g/dL (6.4-8.2)
[2022-06-09] MEDS ORDERED: FURO20 PO (22:43)
[2022-06-09 22:44] LABS: BASOPHILS PERCENT MAN 0 % (0-2); EOSINOPHILS ABSOLUTE MAN 0.07 K/mm3 (0.00-0.68); EOSINOPHILS PERCENT MAN 1 % (0-6); LYMPHOCYTES % ATYPICAL MANUAL 3 % (0-0); LYMPHOCYTES PERCENT MAN 36 % (21-46); MONOCYTES ABSOLUTE MAN 0.21 K/mm3 (0.16-1.47); MONOCYTES PERCENT MAN 3 % (4-13); NEUTROPHILS ABSOLUTE MAN 4.09 K/mm3 (1.96-9.15); SEG NEUTROPHILS PERCENT MAN 57 % (41-73); TOTAL CELLS COUNTED 100
== END 2022-06-09 23:26 | disposition home or self-care (01) ==
LOC: ER 20:33
PROVIDERS: Emergency Medicine
DX: R60.0 Localized edema (principal); E11.65 Type 2 diabetes mellitus with hyperglycemia; Z88.1 Allergy status to other antibiotic agents; Z88.8 Allergy status to other drugs, medicaments and biological substances; Z79.84 Long term (current) use of oral hypoglycemic drugs; Z79.899 Other long term (current) drug therapy; Z79.82 Long term (current) use of aspirin; Z79.4 Long term (current) use of insulin; J44.9 Chronic obstructive pulmonary disease, unspecified; E11.9 Type 2 diabetes mellitus without complications; E78.5 Hyperlipidemia, unspecified; I27.20 Pulmonary hypertension, unspecified
CPT/HCPCS: 36415; 71045; 80053; 83880; 84484; 85025; 93005; 93010; 96374; 99284-25; J1940